=== PATIENT | male | born 1965 | race Caucasian/White ===

== ENCOUNTER 2021-03-30 17:10 | Emergency (ER) | payer OTHER, SELFPAY ==
[2021-03-30 17:16] VITALS: BP 126/87; PULSE 68; RESP 16; TEMP 36.7; O2SAT 97
--- NOTE | 2021-03-30 17:29 | ED.SKABFB ---
HPI - Skin/Abscess/Foreign Bdy General Chief complaint: Skin/Abscess/Foreign Body Stated complaint: RASH Time Seen by Provider: 03/30/21 17:22 Source: patient and RN notes reviewed Mode of arrival: ambulatory Limitations: no limitations History of Present Illness HPI narrative: Patient presents today complaining of a rash to the bilateral inner thighs, lower abdomen, and bilateral axilla since yesterday. Reports the rash itches, but denies pain. Denies any sick symptoms or fever. States he took 1 Benadryl today without relief. MD complaint: rash Related Data Home Medications Medication Instructions Recorded Confirmed albuterol sulfate INHALATION 03/30/21 atorvastatin 03/30/21 azelastine INTRANASAL 03/30/21 fluticasone propionate INTRANASAL 03/30/21 hydrocodone-acetaminophen 03/30/21 montelukast mg 03/30/21 sitagliptin [Januvia] mg 03/30/21 Allergies Allergy/AdvReac Type Severity Reaction Status Date / Time No Known Allergies Allergy Verified 01/01/19 11:25 Review of Systems Review of Systems: CONSTITUTIONAL: Denies body aches, fever, chills, or sweats. EYES: Denies visual changes, redness, or discharge. ENT: Denies rhinorrhea, congestion, sore throat, or otalgia. CARDIOVASCULAR: Denies chest pain, palpitations, or edema. RESPIRATORY: Denies cough or dyspnea. GASTROINTESTINAL: Denies abdominal pain, nausea, vomiting, or diarrhea. GENITOURINARY: Denies dysuria or hematuria. SKIN: Denies wounds.+ Pruritic rash MUSCULOSKELETAL: Denies back pain, joint pain, or myalgia. NEUROLOGIC: Denies headache, numbness, tingling, or weakness. PSYCH: Denies depression or anxiety. [facility] Past Medical History Medical History Diabetes High cholesterol Exam Narrative: GENERAL: Well-appearing, well-nourished, and in no acute distress. HEAD: Normocephalic, atraumatic. EYES: EOMI. No redness or drainage. Conjunctivae normal. ENT: Mucous membranes pink and moist. NECK: Normal AROM. CHEST: No respiratory distress. EXTREMITIES: Normal range of motion. No edema. SKIN: Warm, dry. Capillary refill normal. Normal skin turgor. Scattered erythematous pustular rash associated with hair follicles. Rash is distributed along the bilateral medial thighs, midline lower abdomen, and a few scattered to the bilateral axilla. No induration or fluctuance noted. NEURO: No focal deficits. Alert and oriented x3. Gait steady. PSYCH: Normal affect. No signs of depression or anxiety. Course Vital Signs Vital signs: Vital Signs Temperature 98.0 F 03/30/21 17:16 Pulse Rate 68 03/30/21 17:16 Respiratory Rate 16 03/30/21 17:16 Blood Pressure 126/87 03/30/21 17:16 Pulse Oximetry 97 03/30/21 17:16 Temperature 98.0 F 03/30/21 17:16 Pulse Rate 68 03/30/21 17:16 Respiratory Rate 16 03/30/21 17:16 Blood Pressure 126/87 03/30/21 17:16 Pulse Oximetry 97 03/30/21 17:16 Reviewed. Pt has been instructed to follow up with his PCP regarding his elevated blood pressure today. MDM - Skin/Abscess/Foreign Bdy Differential Diagnosis Differential diagnosis: Likely abscess of skin or subcutaneous tissue, urticaria, cellulitis, eczema, insect bites, impetigo, contact dermatitis and other (Folliculitis) Critical Care Time Critical Care Time Critical Care Time: No Discharge Plan Discharge Clinical Impression: Folliculitis Patient Disposition: Home, Self-Care Condition: Stable Instructions: Antibiotic Form, Folliculitis (ED) Additional Instructions: Your rash is likely due to infected hair follicles. Please take the Keflex as prescribed until gone. Wash with antibacterial soap daily. Follow-up with your PCP in 3 days if symptoms are not improving, or sooner if symptoms worsen. Your blood pressure was elevated above 120/80 today at Urgent Care. This puts you above the threshold for follow up. Please schedule a followup visit with your
== END 2021-03-30 17:38 | disposition home or self-care (01) ==
PROVIDERS: Emergency Provider Nurse Practitioner
DX: L73.9 Follicular disorder, unspecified (principal); E11.9 Type 2 diabetes mellitus without complications; E78.00 Pure hypercholesterolemia, unspecified
CPT/HCPCS: 99213; G0463

== ENCOUNTER 2021-05-24 23:07 | Emergency (ER) | payer OTHER, SELFPAY ==
--- NOTE | ~2021-05-24 | CT_ITS ---
EXAMINATION: CT brain wo con DATE: 05/25/2021 00:10 INDICATION: Syncope TECHNIQUE: Computed tomography (CT) of the head was performed without intravenous contrast. The mA wa s adjusted according to patient size. Iterative reconstruction technique was employed. Exam dose: 60 5.33 mGy-cm total exam DLP. COMPARISON: 01/01/2019 CT brain FINDINGS: 01/01/2019 there is nearly complete opacification of the left maxillary sinus and thickening of the bony wall of that sinus. There is also interval new prominent patchy opacification of the left ethmoid cells since 01/01/2019. Right frontal sinus is not developed. The paranasal sinuses are otherwise unremarkable. The mastoid a ir cells are normally developed and aerated bilaterally. No fracture or bone destruction of the cranial vault. Bilateral carotid siphon internal carotid artery calcifications. No intracranial mass lesion or hemorrhage, midline shift or mass effect effect. No cerebrovascular ac cident. No subdural or epidural hematoma is detected. The orbital contents appear normal. IMPRESSION: Interval prominent left chronic maxillary sinusitis and left ethmoid air cell opacificat ion since 01/01/2019 Bilateral carotid siphon internal carotid artery calcifications. No interval significant intracranial abnormality Reviewed, dictated and finalized at [facility]. Reviewed, dictated and finalized at [facility]. IMPRESSION: Interval prominent left chronic maxillary sinusitis and left ethmo id air cell opacification since 01/01/2019 Bilateral carotid siphon internal carotid artery calcifications. No interval significant intracranial abnormality
[2021-05-24 23:11] VITALS: BP 139/87; PULSE 75; RESP 20; TEMP 36.7; O2SAT 92
--- NOTE | 2021-05-24 23:30 | ECG_ITS ---
Measurements Intervals [place] Rate: 73 P: 64 TN: 180 QRS: 79 QRSD: 100 T: 51 QT: 365 QTc: 404 Interpretive Statements SINUS RHYTHM INCOMPLETE RIGHT BUNDLE BRANCH BLOCK DELAYED PRECORDIAL R/S TRANSITION BASELINE ARTIFACT- I, II, III, AVL BORDERLINE ECG Electronically Signed On 05-25-2021 19:10:31 CDT by Ej Hodge D.O.
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
[2021-05-25] LABS: Basophils Absolute Auto 0.1 K/mm3 (0.0-0.1); Basophils Percent Auto 0.8 % (0.2-1.2); Eosinophils Absolute Auto 0.2 K/mm3 (0-0.3); Hematocrit 53.8 % (42.0-52.0); Hemoglobin 18.5 g/dL (14.0-18.0); Immature Granulocyte Absolute 0.04 K/mm3 (0.00-0.031); Immature Granulocyte Percent A 0.4 % (0-0.5); Lymphocytes Absolute Auto 2.56 K/mm3 (0.9-3.2); Lymphocytes Percent Auto 24.2 % (18.3-44.2); Mean Corpuscular HGB Conc 34.4 g/dl (32-36); Mean Corpuscular Volume 95.9 fl (80-100); Mean Platelet Volume 12.2 fl (7.4-10.4); Monocytes Absolute Auto 0.9 K/mm3 (0.1-0.6); Monocytes Percent Auto 8.6 % (2.6-8.5); Neutrophils Absolute Auto 6.8 K/mm3 (1.3-6.7); Platelet Count Result 149 k/mm3 (150-375); Red Blood Count 5.61 M/mm3 (4.6-6.20); Red Cell Distribution Width 13.5 % (11.5-14.5); White Blood Count 10.6 K/mm3 (4.5-10.0)
[2021-05-25 00:11] LABS: Anion Gap 7 mmol/L (8-16); Blood Urea Nitrogen 20 mg/dL (9-20); Calcium 9.4 mg/dL (8.4-10.2); Carbon Dioxide 29 mmol/L (22-30); Chloride 104 mmol/L (98-107); Estimated CRCL calculation 72 ml/min; Estimated Glomerular Filt Rate > 60; Glucose 91 mg/dL (65-110); Potassium 4.1 mmol/L (3.4-5.0); Sodium 140 mmol/L (137-145)
[2021-05-25] MEDS: SODIUM CHLORIDE 0.9% IV 1,000 ML 999 ML IV CONT (00:36)
[2021-05-25 01:00] LABS: Partial Thromboplastin Time 28.8 SECONDS (22.3-36.8)
[2021-05-25 01:01] LABS: Ethanol < 10 mg/dL (<10)
[2021-05-25 01:02] LABS: Add Urine Microscopic? NO; Appearance Urine Clear (Clear); Bilirubin Urine Negative (Negative); Blood Urine Negative (Negative); Color Urine Straw (Yellow); Glucose Urine UA Negative (Negative); Ketones Urine Negative (Negative); Leukocyte Esterase Ur Negative LEU/UL (Negative); Nitrate Urine Negative (Negative); Protein Urine Negative (Negative); Specific Grav Ur 1.012 (1.001-1.035); Urobilinogen Urine Negative mg/dL (<2.0)
[2021-05-25 01:15] LABS: Troponin I < 0.012 ng/mL (0.000-0.034)
[2021-05-25 01:48] VITALS: BP 130/82; PULSE 78; RESP 20; O2SAT 94
[2021-05-25 02:51] VITALS: BP 141/86; PULSE 83; RESP 18; O2SAT 91
== END 2021-05-25 02:59 | disposition home or self-care (01) ==
PROVIDERS: Emergency Provider Emergency Medicine
DX: R55 Syncope and collapse (principal); I45.10 Unspecified right bundle-branch block
CPT/HCPCS: 36415; 70450; 80048; 80307; 81003; 84484; 85025; 85730; 93005; 96360; 96361; 99284; J7030

== ENCOUNTER 2021-09-16 16:01 | Outpatient (CLI) | payer OTHER, SELFPAY ==
--- NOTE | ~2021-09-16 | XR_ITS ---
XR chest 2V DATE: 09/16/2021 16:34 INDICATION: Emphysema TECHNIQUE: 2 views COMPARISON: 01/01/2019 PA chest FINDINGS: Normal heart size. Mild aortic unfolding. No hilar or mediastinal enlargement. No pulmonary infiltrate or consolidation, pleural effusion or pulmonary vascular congestion or pneumo thorax is detected. Postoperative change in the lower cervical spine. IMPRESSION: No active cardiopulmonary disease Reviewed, dictated and finalized at [facility] [employer]
== END 2021-09-16 16:02 ==
PROVIDERS: PCP Family Medicine; Visit Provider Family Medicine
DX: J43.9 Emphysema, unspecified (principal)
CPT/HCPCS: 71046

== ENCOUNTER 2022-07-28 17:00 | Emergency (ER) | payer OTHER, SELFPAY ==
[2022-07-28 17:05] VITALS: BP 124/78; PULSE 70; RESP 16; TEMP 36.6; O2SAT 96
[2022-07-28 17:56] VITALS: O2SAT 95
--- NOTE | 2022-07-28 18:34 | ED.URI ---
HPI - URI/Sore Throat General Chief Complaint: Upper Respiratory Infection Stated Complaint: flu A+ o2 sats low 90's Time Seen by Provider: 07/28/22 18:12 History of Present Illness HPI Narrative: 56-year-old male history of COPD presents to the emergency room from urgent care after being diagnosed with influenza and having oxygen saturations in the mid 90s. Chest x-ray was obtained and found to have no acute cardiopulmonary disease. Patient states he has been using his rescue inhaler more over the last couple of days. Patient also reports postnasal drip, sinus congestion, and a productive cough. Related Data Home Medications Medication Instructions Recorded Confirmed albuterol sulfate 90 mcg/actuation inhalation 03/30/21 09/13/21 aerosol inhaler atorvastatin 20 mg tablet 03/30/21 09/13/21 azelastine 137 mcg (0.1 %) nasal intranasal 03/30/21 09/13/21 spray aerosol fluticasone propionate 50 intranasal 03/30/21 09/13/21 mcg/actuation nasal spray,suspension montelukast 10 mg tablet mg 03/30/21 09/13/21 sitagliptin phosphate 50 mg tablet mg 03/30/21 09/13/21 (Januvia) aspirin 81 mg tablet,delayed 81 mg PO DAILY 09/13/21 09/13/21 release (Adult Low Dose Aspirin) hydrocodone 7.5 mg-acetaminophen 1 tablet PO BID PRN 09/13/21 09/13/21 325 mg tablet ketorolac 15.75 mg/spray nasal 15.75 mg intranasal Q6-8H PRN 09/13/21 09/13/21 spray (Sprix) Allergies Allergy/AdvReac Type Severity Reaction Status Date / Time No Known Allergies Allergy Verified 09/13/21 15:40 Review of Systems Review of Systems: CONSTITUTIONAL: Denies fever, chills, or sweats. EYES: Denies visual changes, redness, or discharge. ENT: Reports rhinorrhea, congestion CARDIOVASCULAR: Denies chest pain, palpitations, or edema. RESPIRATORY: Reports cough GASTROINTESTINAL: Denies abdominal pain, nausea, vomiting, or diarrhea. GENITOURINARY: Denies dysuria or hematuria. SKIN: Denies rash or itching. MUSCULOSKELETAL: Denies back pain, joint pain, or myalgia. NEUROLOGIC: Denies headache, numbness, dizziness, or weakness. PSYCHIATRIC: Denies anxiety or depression. [facility], [facility] Past Medical History Medical History Allergies BMI 28.0-28.9,adult COPD (chronic obstructive pulmonary disease) Degenerative joint disease of cervical and lumbar spine Diabetes High cholesterol Prediabetes Tobacco abuse Surgical History Surgical History Previous back surgery Family History Family History Other Asthma Depression Diabetes mellitus Heart disease Hypertension Liver disease Renal disease Social History Social History Smoking status: Current every day smoker (cigarillos) Tobacco type: cigars Alcohol intake: current Exam Narrative: GENERAL: Well-appearing, well-nourished, no physical limitations, and in no acute distress. HEAD: Normocephalic, atraumatic. EYES: Conjunctivae normal, PERRLA and EOMI. ENT: External nose normal, Nares clear, no rhinorrhea or epistaxis. Mucous membranes moist. Oropharynx without tonsillar hypertrophy exudate or other lesions. External ears normal, bilateral TMs normal bilaterally NECK: Supple. No adenopathy or masses. CHEST: Clear to auscultation. No respiratory distress. No wheezes rales or rhonchi. HEART: Regular rate and rhythm. No murmur heard. Normal peripheral pulses. EXTREMITIES: Normal range of motion. No edema. No clubbing or cyanosis SKIN: Warm, dry, no rash. No noted wounds NEURO: No focal deficits. Alert and oriented x3. MAEW. CN's II-XI intact bilaterally, normal gait PSYCH: Cooperative. Normal mood and affect. Course Vital Signs Vital signs: Vital Signs Temperature 36.6 C 07/28/22 17:05 Pulse Rate 70 07/28/22 17:05 Respiratory Rate 16 07/28/22 17:05
[2022-07-28 18:56] VITALS: O2SAT 95
== END 2022-07-28 18:58 | disposition home or self-care (01) ==
LOC: ANHED 18:38
PROVIDERS: Emergency Provider Nurse Practitioner Family
DX: J10.1 Influenza due to other identified influenza virus with other respiratory manifestations (principal); J44.9 Chronic obstructive pulmonary disease, unspecified; E11.9 Type 2 diabetes mellitus without complications; E78.00 Pure hypercholesterolemia, unspecified; F17.290 Nicotine dependence, other tobacco product, uncomplicated; Z79.84 Long term (current) use of oral hypoglycemic drugs; Z79.82 Long term (current) use of aspirin
CPT/HCPCS: 96372; 99283; J1100

== ENCOUNTER 2024-06-07 10:27 | Emergency (ER) | payer OTHER, SELFPAY ==
--- NOTE | 2024-06-07 10:30 | ED.URI ---
HPI - URI/Sore Throat General Chief Complaint: Upper Respiratory Infection Stated Complaint: cough Time Seen by Provider: 06/07/24 10:46 Source: patient and RN notes reviewed Mode of arrival: ambulatory Limitations: no limitations History of Present Illness HPI Narrative: 58-year-old male presents with concern for cough, shortness of breath with exertion, chest congestion nasal congestion with sore throat. Reports symptoms started on Monday. He has a history of COPD. He has also a smoker. He has been using his albuterol inhaler. He denies fever body aches chills or sweats MD elicited complaint: cough Related Data Home Medications Medication Instructions Recorded Confirmed albuterol sulfate 90 mcg/actuation 1 inh inhalation PRN PRN Wheezing 03/30/21 06/07/24 aerosol inhaler azelastine 137 mcg (0.1 %) nasal 2 spray intranasal BID 03/30/21 06/07/24 spray fluticasone propionate 50 2 spray intranasal DAILY 03/30/21 06/07/24 mcg/actuation nasal spray,suspension montelukast 10 mg tablet 10 mg PO DAILY 03/30/21 06/07/24 sitagliptin phosphate 50 mg tablet 50 mg PO DAILY 03/30/21 06/07/24 (Januvia) aspirin 81 mg tablet,delayed 81 mg PO DAILY 09/13/21 06/07/24 release (Adult Low Dose Aspirin) hydrocodone 7.5 mg-acetaminophen 1 tablet PO BID PRN Pain 09/13/21 06/07/24 325 mg tablet atorvastatin 80 mg tablet 80 mg PO QHS 06/07/24 06/07/24 clopidogrel 75 mg tablet 75 mg PO DAILY 06/07/24 06/07/24 Allergies Allergy/AdvReac Type Severity Reaction Status Date / Time No Known Allergies Allergy Verified 06/07/24 10:55 Review of Systems Review of Systems: CONSTITUTIONAL: Denies malaise, chills, sweats, or fever. EYES: Denies visual changes, redness, or discharge. ENT: Reports rhinorrhea, congestion, and sore throat. CARDIOVASCULAR: Denies chest pain, palpitations, or edema. RESPIRATORY: Reports cough, exertional dyspnea. GASTROINTESTINAL: Denies abdominal pain, nausea, vomiting, diarrhea SKIN: Denies rash or itching. MUSCULOSKELETAL: Denies myalgia. NEUROLOGIC: Denies headache. All systems reviewed & are unremarkable except as noted in HPI and below PMFSH Past Medical History Medical History Allergies BMI 28.0-28.9,adult COPD (chronic obstructive pulmonary disease) Degenerative joint disease of cervical and lumbar spine Diabetes High cholesterol Prediabetes Tobacco abuse Surgical History Surgical History Previous back surgery Family History Family History Other Asthma Depression Diabetes mellitus Heart disease Hypertension Liver disease Renal disease Social History Social History Smoking status: Current every day smoker (cigarillos) Tobacco type: cigars Alcohol intake: current Comments At time of signature, agree with nursing past medical, surgical, social and family history. There is no relevant family history pertinent to the presenting complaint Exam Narrative: GENERAL: Well-appearing, well-nourished, and in no acute distress. HEAD: Normocephalic EYES: PERRLA, conjunctivae clear ENT: Nares clear, turbinates edematous and erythematous, clear discharge. Mucous membranes moist. TM pearly more with dull light reflex bilaterally; no tragal tenderness. Oropharynx not erythematous without lesions. Tonsils not enlarged and without exudate, no drooling, no hoarseness, no trismus, uvula midline. NECK: Supple. No lymphadenopathy CHEST: Scattered wheeze, otherwise Clear to auscultation, breath sounds equal. No rhonchi, rales, or stridor. No respiratory distress, speaks in full sentences. HEART: Regular rate and rhythm. No murmur heard. SKIN: Warm, dry, no rash. NEURO: Alert and oriented x3. PSYCH: Normal mood and affect Course Course Emergency Course
[2024-06-07 10:40] VITALS: RESP 20
[2024-06-07 10:44] VITALS: BP 109/72; PULSE 68; RESP 16; TEMP 35.6; O2SAT 94
[2024-06-07 10:55] VITALS: BP 109/72; PULSE 68; RESP 16; TEMP 35.6; O2SAT 94
== END 2024-06-07 11:05 | disposition home or self-care (01) ==
PROVIDERS: Emergency Provider Nurse Practitioner
DX: J44.1 Chronic obstructive pulmonary disease with (acute) exacerbation (principal); F17.290 Nicotine dependence, other tobacco product, uncomplicated; Z79.82 Long term (current) use of aspirin; Z79.899 Other long term (current) drug therapy; Z79.891 Long term (current) use of opiate analgesic
CPT/HCPCS: 99213; G0463

== ENCOUNTER 2025-04-15 08:12 | Emergency (ER) | payer OTHER, SELFPAY ==
--- NOTE | 2025-04-15 08:14 | ED.SKABFB ---
HPI - Skin/Abscess/Foreign Bdy General Chief complaint: Skin/Abscess/Foreign Body Stated complaint: Insect Bite Time Seen by Provider: 04/15/25 08:24 Source: patient, RN notes reviewed and old records reviewed Mode of arrival: ambulatory Limitations: no limitations History of Present Illness HPI narrative: 59-year-old male presents to the [facility] after getting stung by a wasp yesterday. Redness that is blanchable, swelling noted to the dorsal aspect right hand as well as mid forearm left. 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 Capillary refill under 2 seconds. No treatment prior to arrival No lip or tongue swelling. No difficulty breathing. Related Data Home Medications ?Medication ?Instructions ?Recorded ?Confirmed ?Last Taken ?Type albuterol sulfate 90 mcg/actuation 1 inh inhalation PRN PRN Wheezing 03/30/21 06/07/24 Unknown History aerosol inhaler azelastine 137 mcg (0.1 %) nasal 2 spray intranasal BID 03/30/21 06/07/24 Unknown History spray fluticasone propionate 50 2 spray intranasal DAILY 03/30/21 06/07/24 Unknown History mcg/actuation nasal spray,suspension montelukast 10 mg tablet 10 mg PO DAILY 03/30/21 06/07/24 Unknown History sitagliptin phosphate 50 mg tablet 50 mg PO DAILY 03/30/21 06/07/24 Unknown History (Januvia) aspirin 81 mg tablet,delayed 81 mg PO DAILY 09/13/21 06/07/24 Unknown History release (Adult Low Dose Aspirin) hydrocodone 7.5 mg-acetaminophen 1 tablet PO BID PRN Pain 09/13/21 06/07/24 Unknown History 325 mg tablet atorvastatin 80 mg tablet 80 mg PO QHS 06/07/24 06/07/24 Unknown History clopidogrel 75 mg tablet 75 mg PO DAILY 06/07/24 06/07/24 Unknown History dapagliflozin propanediol 10 mg mg 04/15/25 Unknown History tablet (Farxiga) glimepiride 2 mg tablet mg 04/15/25 Unknown History metoprolol succinate 25 mg mg PO 04/15/25 Unknown History tablet,extended release 24 hr nitroglycerin 0.4 mg sublingual mg 04/15/25 Unknown History tablet Allergies Allergy/AdvReac Type Severity Reaction Status Date / Time No Known Allergies Allergy Verified 04/15/25 08:13 Review of Systems Review of Systems: All systems reviewed & are unremarkable except as noted in HPI and below Constitutional: Constitutional: Reports no additional constitutional complaints ENT: Reports system reviewed and no additional complaints, except as documented Cardiovascular: Cardiovascular: Reports no additional cardiovascular complaints, Denies chest pain and Denies dyspnea Respiratory: Respiratory: Reports no additional respiratory complaints, Denies chest congestion, Denies cough and Denies dyspnea Musculoskeletal: Musculoskeletal: Reports no additional musculoskeletal complaints Integumentary/Breasts: Skin/Breast: Reports as per HPI [facility] Past Medical History Medical History Tobacco abuse Prediabetes Degenerative joint disease of cervical and lumbar spine COPD (chronic obstructive pulmonary disease) BMI 28.0-28.9,adult Allergies Diabetes High cholesterol Surgical History Surgical History Previous back surgery Family History Family History Other Asthma Depression Diabetes mellitus Heart disease Hypertension Liver disease Renal disease Social History Social History Smoking status: Current every day smoker (cigarillos) Tobacco type: cigars Alcohol intake: current Comments At the time of my signature, I reviewed and agree with the nursing past medical, surgical, social, and family history. There is no relevant family history pertinent to the patient complaint. Exam Const: General: cooperative, healthy appearing, comfortable, no acute distress, well developed, alert and well nourished Nutritional Appearance: well nourished Orientation/consciousness: patient oriented x3 Limitations: no limitations HENMT: Head: normal to inspection Eyes: General: appearance normal, both eyes and all related structures Alignment and Position: alignment normal Neck: Neck: normal visual inspection, full ROM, no lymphadenopathy and no meningeal signs Chest: Chest palpation & inspection: normal inspection of the chest Resp: Effort & Inspection: normal respiratory effort and able to speak in complete sentences Auscultation: clear to auscultation bilaterally, no crackles, no rales, no rhonchi and no wheezes Cardio: Rate: regular rate Skin: General skin exam: normal color and no rashes or lesions noted Other: Redness dorsal aspect right hand with minor swelling to mid forearm dorsal aspect. Also mild area pink, blanchable to the mid posterior left forearm with mild swelling. Neuro: General: patient oriented x3, gait normal, moves all extremities and no meningeal signs Cognition (Neuro): normal cognition Speech: normal speech Gait exam (Neuro): Normal gait present Extrem: General: normal to inspection, full ROM, capillary refill normal and normal gait Psych: Appearance: grossly normal and well kempt Mental Status: mental status grossly normal Speech and movement: Normal speech and movement present and Clear speech present Affect: normal affect Attitude: cooperative Course Course Level of Care: Express Care Visit Vital Signs Vital signs: Vital Signs Temperature 97.6 F 04/15/25 08:20 Pulse Rate 64 04/15/25 08:20 Respiratory Rate 16 04/15/25 08:20 Blood Pressure 124/75 04/15/25 08:20 Pulse Oximetry 96 04/15/25 08:20 Oxygen Delivery Room Air 04/15/25 08:20 Temperature 97.6 F 04/15/25 08:20 Pulse Rate 64 04/15/25 08:20 Respiratory Rate 16 04/15/25 08:20 Blood Pressure 124/75 04/15/25 08:20 Pulse Oximetry 96 04/15/25 08:20 Oxygen Delivery Room Air 04/15/25 08:20 Reviewed MDM - Skin/Abscess/Foreign Bdy MDM Narrative Medical decision making narrative: Patient sitting in exam room. Patient is nontoxic, vitals stable. Patient presents with what is being both to the left forearm and dorsal right hand. Patient most likely with localized reaction, discussed prednisone, the importance of checking his blood sugar. Patient reports his blood sugar has been low in the low 100s. Patient verbalized that he would stop the prednisone if his sugars to rise at of his normal. Discussed other [id number] treatment plan as well Patient appropriate for outpatient treatment with close follow-up Discharge instructions reviewed with patient, as well as provided in writing per nursing staff. The instructions also include specific and strict return/GO TO THE ER as well as f/u information. All questions have been answered, and the patient deny any further questions with discharge and discharge plan. Some parts of this dictation were generated by voice recognition software and may contain typographical and/or grammatical inaccuracies. Differential Diagnosis Differential diagnosis: Likely abscess of skin or subcutaneous tissue, urticaria, cellulitis, eczema, insect bites and contact dermatitis Critical Care Time Critical Care Time Critical Care Time: No Discharge Plan Discharge Clinical Impression: Accidental insect sting Patient Disposition: Home Condition: Stable Instructions: Insect Bite or Sting (ED), General Allergic Reaction (ED) Additional Instructions: The most important part of your care is follow up with Primary care provider. Take Benadryl 25 mg every 8 hours for itching Take Zyrtec 10md every day for 14 days Take Pepcid 20mg daily for 14 days days Take the steroids starting today. Closely monitor your blood sugars. If your blood sugars get high stop taking the steroid. Continue with [id number] products Avoid hot showers, Take cool showers. Hot showers will make rashes worse Apply cool compresses every 2-3 hours for 15 minutes Go to the ER for new or worsening symptoms such as shortness of breath. Patient Language: Lithuanian Prescriptions: New prednisone 20 mg tablet See Rx Instructions .Route .COMPLEX Qty: 9 0RF Rx Instructions: Take 40 mg daily for 3 days, 20 mg daily for 3 days No Action montelukast 10 mg tablet 10 mg PO DAILY azelastine 137 mcg (0.1 %) aerosol,spray 2 spray INTRANASAL BID albuterol sulfate 90 mcg/actuation HFA aerosol inhaler 1 inh INHALATION PRN PRN (Reason: Wheezing) fluticasone propionate 50 mcg/actuation spray,suspension 2 spray INTRANASAL DAILY Januvia 50 mg tablet 50 mg PO DAILY hydrocodone-acetaminophen 7.5-325 mg tablet 1 tablet PO BID PRN (Reason: Pain) clopidogrel 75 mg tablet 75 mg PO DAILY atorvastatin 80 mg tablet 80 mg PO QHS nitroglycerin 0.4 mg tablet, sublingual metoprolol succinate 25 mg tablet extended release 24 hr PO glimepiride 2 mg tablet dapagliflozin propanediol [Farxiga] 10 mg tablet aspirin [Adult Low Dose Aspirin] 81 mg tablet,delayed release (DR/EC) 81 mg PO DAILY Follow-up/Referrals: UNKNOWN,DOCTOR [Primary Care Provider] Stand Alone Forms: Work/School Release IP Time of Disposition: 08:33
[2025-04-15 08:20] VITALS: BP 124/75; PULSE 64; RESP 16; TEMP 36.4; O2SAT 96
== END 2025-04-15 08:40 | disposition home or self-care (01) ==
PROVIDERS: Emergency Provider Nurse Practitioner
DX: T63.461A Toxic effect of venom of wasps, accidental (unintentional), initial encounter (principal); J44.9 Chronic obstructive pulmonary disease, unspecified; E11.9 Type 2 diabetes mellitus without complications; M47.812 Spondylosis without myelopathy or radiculopathy, cervical region; M47.816 Spondylosis without myelopathy or radiculopathy, lumbar region; Z79.82 Long term (current) use of aspirin; F17.290 Nicotine dependence, other tobacco product, uncomplicated
CPT/HCPCS: 99213; G0463